=== PATIENT | female | born 1965 | race Caucasian/White ===

== ENCOUNTER → 2016-08-05 08:20 | Day surgery (SDC) | payer BC ==
[~2016-08-05 08:20] MED LIST: Buffered Lidocaine 1% SYRIN* 3 ML/SYR SYRINGE INTRADERM ONE; Dexamethasone IV* 4 MG/ML 1 ML (4 MG) ONE; DiMENhydriNATE IV* 50 MG/ML VIAL IV PUSH PRN; Ibuprofen TAB* 600 MG ONE; Ibuprofen TAB* 600 MG PO ONE; Lidocaine 2% PF* 5 ML VIAL ONE; Ondansetron INJ* 2 MG/ML VIAL ONE; Propofol* 10 MG/ML 20 ML BTL IV PUSH ONE; Scopolamine 1.5 mg* PATCH ONE; Sodium Citrate/Citric Acid* 15 ML UDC ONE; Sodium Citrate/Citric Acid* 15 ML UDC PO ONE; fentaNYL* 50 MCG/ML 2 ML VIAL (100 MCG VIAL) IV PRN; fentaNYL* 50 MCG/ML 2 ML VIAL (100 MCG VIAL) ONE
[2016-08-05 08:28] LABS: Manual Entry Verification HAN0055; UR Preg Internal Control QC Line Present
[2016-08-05 09:20] LABS: Hematocrit 42 % (35-47); Mean Corpuscular HGB Conc 34 g/dl (31-36); Mean Corpuscular Hemoglobin 30 pg (27-31); Mean Corpuscular Volume 88 fL (80-97); Mean Platelet Volume 7 um3 (7.4-10.4); Red Blood Count 4.72 10^6/ul (4.0-5.4); Red Cell Distribution Width 12 % (10.5-15); White Blood Count 7.6 10^3/ul (3.5-10.8)
[2016-08-05 11:02] VITALS: BP 128/75
--- NOTE | 2016-08-06 04:32 | OP ---
AMENDED REPORT TO CORRECT DATE OF OPERATION - ESIGNED BEFORE ADJUSTMENT DATE OF OPERATION: 08/05/16 DATE OF : 63 SURGEON: Art Berrios MD. [employer] MEMBER: None. ANESTHESIA: General endotracheal tube. PRE-OP DIAGNOSES: Menorrhagia and dysmenorrhea. POST-OP DIAGNOSIS: Menorrhagia and dysmenorrhea. OPERATIVE PROCEDURE: D and C hysteroscopy, endometrial ablation. ESTIMATED BLOOD LOSS: Minimal. SPECIMENS: Includes endometrium. FINDINGS: On exam under anesthesia, the uterus was retroverted. There was a small cavity with a small width and some clips consistent with adenomyosis. DESCRIPTION OF PROCEDURE: The patient was identified and procedure identified as a D and C hysteroscopy, endometrial ablation. The patient was taken to the operating room and prepped and usual fashion in the dorsal lithotomy position under general anesthesia. Two single-tooth tenaculums were placed in the anterior lip of the cervix. The uterus was sounded to 7.5 cm. The cervix was sounded to 2 cm making the cavity length 5.5. The hysteroscope inserted and the above findings were noted. Hysteroscope was removed and the sharp curette was inserted and sharp curettage was performed. The cervix was easily dilated up to a #8 Hegar dilator. The NovaSure device was open. The ray was checked. The device was placed in the uterine cavity. Initially the device width would not open to a sufficient amount. With reapplication and manipulation and visualization of the cavity, a cavity width of 2.5 cm was obtained. Making the power setting at 76, a CO2 perforation test was performed and the device passed. NovaSure was enabled and NovaSure ablation took place for 1 minute and 14 seconds. At the end of the procedure, the device was removed and a good ablation was noted throughout the cavities and the hysteroscope. All instruments were removed from vagina. The tenaculum sites were cauterized using silver nitrate and the patient returned to the recovery room in stable condition. All sponge and instruments counts were correct. [id number]/[facility] #: [id number] [facility]
== END | disposition home or self-care (01) ==
LOC: OR 08:20
PROVIDERS: ATTEND Obstetrics & Gynecology
DX: N92.0 Excessive and frequent menstruation with regular cycle (principal); N94.6 Dysmenorrhea, unspecified
CPT/HCPCS: 36415; 81025; 85025; 88305; A9270-GY; J1100; J2405; J2704; J3010

== ENCOUNTER 2018-05-27 14:37 | Emergency (ER) | payer BC ==
[2018-05-27 14:52] VITALS: BP 125/70
--- NOTE | 2018-05-27 15:11 | UC ---
Upper Extremity HPI - HPI Summary HPI Summary: pt was doing exrcises at gym 4 day sago, felt fine after exercising until next day when R wrist became painful. took dose ibuprofen with some relief. today R wrist is very painful and hurts ot move. no fall, no slip, nothing dropped onto wrist - History of Current Complaint Chief Complaint: UCUpperExtremity Stated Complaint: WRIST INJURY Time Seen by Provider: 05/27/18 14:58 Hx Obtained From: Patient Hx Last Menstrual Period: post ?: No Onset/Duration: Gradual Onset Severity Initially: Mild Severity Currently: Severe Pain Intensity: 8 Location Of Pain: Is Discrete @ Character: Throbbing, Stiffness Aggravating Factor(s): Movement Alleviating Factor(s): Ice, Rest Associated Signs And Symptoms: Positive: Negative - Allergies/Home Medications Allergies/Adverse Reactions: Allergies Allergy/AdvReac Type Severity Reaction Status Date / Time No Known Allergies Allergy Verified 05/27/18 14:53 Home Medications: Home Medications Mirbetric* 1 tab PO DAILY 05/27/18 [History Confirmed 05/27/18] PMH/Surg Hx/FS Hx/Imm Hx Previously Healthy: Yes GI/ History: Other - interstitial cystitis Neurological History: Other - Surgical History Surgical History: Yes Surgery Procedure, Year, and Place: Thyroid growth removed 1995, bladder stimulation system implanted June 2010. PROCEDURES FOR IINTERSITIAL CYSTITIS. - CAUTERIZATION OF HUNNERS LESIONS- [place] - Family History Known Family History: Positive: None Negative: Hypertension, Diabetes - Social History Occupation: Employed Full-time - teacher Lives: With Family Alcohol Use: Occasionally Alcohol Amount: WEEKENDS Substance Use Type: None Smoking Status (MU): Never Smoked Tobacco Review of Systems All Other Systems Reviewed And Are Negative: Yes Constitutional: Positive: Negative Respiratory: Positive: Negative Cardiovascular: Positive: Negative Musculoskeletal: Positive: Decreased ROM - R wrist Neurological: Positive: Negative Psychological: Positive: Negative Is Patient Immunocompromised?: No Physical Exam Triage Information Reviewed: Yes Appearance: Well-Appearing, Well-Nourished Vital Signs: Initial Vital Signs Temp 97.8 F 05/27/18 14:48 Pulse 76 05/27/18 14:48 Resp 16 05/27/18 14:48 BP 125/70 05/27/18 14:48 Pulse Ox 100 05/27/18 14:48 Vital Signs Reviewed: Yes Respiratory Exam: Normal Respiratory: Positive: Lungs clear Cardiovascular Exam: Normal Cardiovascular: Positive: RRR Musculoskeletal: Positive: Other: - with palp radial aspect wrist, positive Finkelstiens test, no appreciable swelling, no deformity or ecchymosis Neurological Exam: Normal Neurological: Positive: Alert Skin Exam: Normal Upper Extremity Course/Dx - Differential Dx/Diagnosis Differential Diagnosis/HQI/PQRI: Fracture (Closed), Strain, Sprain Provider Diagnosis: Tendonitis Discharge - Sign-Out/Discharge Documenting (check all that apply): Patient Departure All imaging exams completed and their final reports reviewed: No Studies - Discharge Plan Condition: Good Disposition: HOME Patient Education Materials: Tenosynovitis (ED) Referrals: Manuela DAWSON,Ngozi Rosado [Primary Care Provider] - Nadir Villatoro MD [Medical Doctor] - Additional Instructions: take ibuprofen 600mg 3 times daily with food for 5 days ice fr 2 days wear wrist splint for 3-5 days if no [id number] with orthopedics - Billing Disposition and Condition Condition: GOOD Disposition: Home
== END 2018-05-27 15:20 | disposition home or self-care (01) ==
LOC: UCEAST 14:37
DX: M77.9 Enthesopathy, unspecified (principal)
CPT/HCPCS: 99201; G0463